=== PATIENT | female | born 1975 | race Asian ===

== ENCOUNTER 2016-08-10 07:08 | Emergency (ER) | payer MEDICAID ==
[~2016-08-10] VITALS: Ht 152.4 cm; Wt 88.5 kg
[2016-08-10 07:17] VITALS: BP_SYST 143
[2016-08-10] MEDS ORDERED: KETOROLAC TROMETHAMINE 30 MG VIAL IM ONE (08:45)
[2016-08-10 09:32] VITALS: BP_SYST 143
== END 2016-08-10 09:32 | disposition home or self-care (01) ==
LOC: SED 07:08
DX: S93.401A Sprain of unspecified ligament of right ankle, initial encounter (principal); S93.601A Unspecified sprain of right foot, initial encounter; W07.XXXA Fall from chair, initial encounter; Y93.E2 Activity, laundry; Y92.89 Other specified places as the place of occurrence of the external cause; Y99.8 Other external cause status
CPT/HCPCS: 73610; 73630; 96372; 99284; J1885

== ENCOUNTER 2016-12-02 01:16 | Emergency (ER) | payer MEDICAID ==
[~2016-12-02] VITALS: Ht 152.4 cm; Wt 90.3 kg
[2016-12-02 01:18] VITALS: BP_SYST 139
[2016-12-02] MEDS ORDERED: LORazepam 2 MG/ML VIAL IVP ONE (01:30)
[2016-12-02] MEDS ORDERED: ASPIRIN 325 MG TABLET PO ONE (01:30)
[2016-12-02 01:57] LABS: BASOPHILS % (AUTO) 0.3 % (0.0-2.0); CALCIUM 8.8 mg/dL (8.4-11.0); CREATININE 1.01 mg/dL (0.55-1.30); EOSINOPHILS # (AUTO) 0.2 K/uL (0.0-0.4); EOSINOPHILS % (AUTO) 2.1 % (0.0-4.0); HEMATOCRIT 37.9 % (36-48); HEMOGLOBIN 13.2 g/dL (12.0-16.0); LYMPHOCYTES # (AUTO) 3.9 K/uL (1.0-5.5); LYMPHOCYTES % (AUTO) 42.7 % (20.5-51.5); MEAN CORPUSCULAR HEMOGLOBIN 31 pg (27-31); MEAN CORPUSCULAR HGB CONC 35 % (32-36); MEAN CORPUSCULAR VOLUME 89 fL (79.0-98.0); MONOCYTES # (AUTO) 0.4 K/uL (0.0-1.0); MONOCYTES % (AUTO) 4.8 % (1.7-9.3); NEUTROPHILS # (AUTO) 4.5 K/uL (1.8-7.7); NEUTROPHILS % (AUTO) 50.1 % (40.0-70.0); PLATELET COUNT (AUTO) 214 K/uL (130-430); POTASSIUM 3.8 mmol/L (3.5-5.1); RED BLOOD CELL COUNT(AUTO) 4.29 MIL/uL (4.2-6.2); RED CELL DISTRIBUTION WIDTH 11.2 % (9.0-15.0)
[2016-12-02 02:00] LABS: PROTHROMBIN TIME 10.4 SECS (9.5-12.5)
[2016-12-02 02:01] LABS: ALBUMIN 3.6 g/dL (3.4-4.8); TOTAL BILIRUBIN 0.4 mg/dL (0.0-1.0)
[2016-12-02] MEDS ORDERED: LORazepam 2 MG/ML VIAL (FOR ER USE) ONE (02:01)
[2016-12-02 02:49] VITALS: BP_SYST 109
[2016-12-02] MEDS ORDERED: NITROGLYCERIN LINGUAL 400 mCg/SPRAY ONE (10:09)
== END 2016-12-02 02:49 | disposition home or self-care (01) ==
LOC: SED 01:16
DX: R20.2 Paresthesia of skin (principal); R51 Headache; I10 Essential (primary) hypertension
CPT/HCPCS: 36415; 71010; 80053; 82550; 84484; 85025; 85610; 85730; 93005; 96374; 99285; J2060

== ENCOUNTER 2017-01-08 09:33 | Emergency (ER) | payer MEDICAID ==
[~2017-01-08] VITALS: Ht 152.4 cm; Wt 86.2 kg
[2017-01-08 09:50] VITALS: BP_SYST 114
--- NOTE | 2017-01-08 09:50 | NUR ---
Patient to ER bed 03 to gown for evaluation. Side rails up. Report given to Minerva.
--- NOTE | 2017-01-08 09:50 | NUR ---
ER at bedside examining patient.
--- NOTE | 2017-01-08 10:33 | NUR ---
pt c/o right ear pain since last night 01/03,right thumb swelling,an object dropped on right thumb 2 weeks ago.mild swelling,CMS intact.difficulty to bend right thumb.
--- NOTE | 2017-01-08 11:24 | NUR ---
Patient given written and verbal discharge instructions and verbalizes understanding. ER MD discussed with patient the results and treatment provided. Patient in stable condition. ID arm band removed. Rx of augmentin given. Patient educated on pain management and to follow up with PMD. Pain Scale 2/10 . Opportunity for questions provided and answered.
[2017-01-08 11:25] VITALS: BP_SYST 110
== END 2017-01-08 11:24 | disposition home or self-care (01) ==
LOC: SED 09:33
DX: S62.501A Fracture of unspecified phalanx of right thumb, initial encounter for closed fracture (principal); H92.02 Otalgia, left ear; I10 Essential (primary) hypertension; W22.8XXA Striking against or struck by other objects, initial encounter; Y93.89 Activity, other specified; Y92.89 Other specified places as the place of occurrence of the external cause; Y99.8 Other external cause status
CPT/HCPCS: 99284

== ENCOUNTER 2017-03-23 18:00 | Emergency (ER) | payer MEDICAID ==
[~2017-03-23] VITALS: Ht 157.5 cm; Wt 90.3 kg
[2017-03-23 18:00] VITALS: BP_SYST 114
[2017-03-23] MEDS ORDERED: IBUPROFEN 800 MG TABLET PO ONE (20:15)
[2017-03-23] MEDS ORDERED: AMOXICILLIN/CLAVULANATE POTASSIUM 875 MG TABLET PO ONE (20:15)
[2017-03-23 20:28] VITALS: BP_SYST 128
== END 2017-03-23 20:28 | disposition home or self-care (01) ==
LOC: SED 18:00
DX: J32.9 Chronic sinusitis, unspecified (principal); I10 Essential (primary) hypertension
CPT/HCPCS: 71020-TC; 99284